=== PATIENT | female | born 1940 | race Caucasian/White ===

== ENCOUNTER 2016-10-17 09:16 | Emergency (ER) | payer OTHER ==
[~2016-10-17] VITALS: Ht 160 cm; Wt 54.4 kg
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
[2016-10-17 10:51] LABS: ABSOLUTE BASOPHIL COUNT 0 /CUMM (0.0-0.2); ABSOLUTE EOSINOPHIL COUNT 0.1 /CUMM (0.0-0.7); ABSOLUTE GRANULOCYTE CT 5.7 /CUMM (1.4-6.5); ABSOLUTE MONOCYTE COUNT 0.7 /CUMM (0.10-0.60); BASOPHIL % 0.2 % (0.0-2.0); EOSINOPHIL % 1.8 % (0-5); GRANULOCYTE % 74.9 % (42.2-75.2); HEMATOCRIT 37.2 % (37-47); MEAN CORPUSCULAR HGB CONC 33.8 G/DL (33.0-37.0); MEAN CORPUSCULAR VOLUME 94.9 FL (81.0-99.0); MEAN PLATELET VOLUME 8.9 FL (7.4-10.4); PLATELET COUNT 286 /CUMM (130-400); RBC DISTRIBUTION WIDTH 14.3 % (11.5-14.5); RED BLOOD CELL CT 3.92 /CUMM (4.20-5.40); WHITE BLOOD CELL COUNT 7.6 /CUMM (4.8-10.8)
--- NOTE | 2016-10-17 16:46 | CT SCAN REPORT ---
EXAMINATION: CT HEAD WITHOUT CONTRAST CLINICAL INFORMATION: Severe hypertension and strange behavior. Evaluate for intracranial hemorrhage. COMPARISON: No relevant prior imaging available. TECHNIQUE: Contiguous axial imaging was performed from the skull base to vertex without intravenous administration of contrast. DLP: 772.13 mGy-cm. FINDINGS: There is no acute intracranial hemorrhage or abnormal extra-axial collection. No intracranial mass effect or midline shift. Lateral and third ventricles are prominent with respect to the subarachnoid spaces. There is ill-defined hypoattenuation within the periventricular white matter. Reynolds-white matter differentiation is preserved and there is no evidence of acute territorial infarct. The calvarium and skull base are intact. Mastoid air cells and middle ear cavities are well aerated. Visualized paranasal sinuses are well aerated. IMPRESSION: There appears be disproportionate enlargement of the lateral and third ventricles with respect to the subarachnoid spaces. This finding may simply represent a manifestation of global parenchymal loss. The possibility of normal pressure hydrocephalus cannot be excluded on the basis of this examination therefore correlation with clinical examination is recommended with regard to this finding. There is no evidence of acute intracranial hemorrhage. There are chronic small vessel ischemic changes within the periventricular white matter. No evidence of acute territorial infarct.
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
[2016-10-18] MEDS ORDERED: NORVASC10 M1 PO (11:57)
[2016-10-18 12:21] VITALS: BP 133/63
== END 2016-10-18 12:26 ==
LOC: ERH 09:16
PROVIDERS: Emergency Medicine
DX: I10 Essential (primary) hypertension (principal)
CPT/HCPCS: 80307; 93005; 93010; 96374; 96376; 99291; G0463